=== PATIENT | male | born 1995 | race Caucasian/White ===

== ENCOUNTER 2017-05-28 15:36 | Emergency (ER) | payer OTHER ==
[~2017-05-28] VITALS: Ht 182.9 cm; Wt 147.4 kg
[2017-05-28] MEDS ORDERED: ACCUNEB SO1.25 MG/1 INH (16:49)
[2017-05-28] MEDS ORDERED: PREDNISONE 20 M20 MG PO (17:08)
[2017-05-28] MEDS ORDERED: ALBUTEROL2.5 MG/31 INH (17:08)
[2017-05-28] MEDS ORDERED: PROVENTIL HFA6.7 G1 INH (17:08)
[2017-05-28] MEDS ORDERED: ZPAK PO (17:08)
[2017-05-28 17:28] VITALS: BP 166/100
== END 2017-05-28 17:30 | disposition home or self-care (01) ==
LOC: ER 15:36
DX: J45.909 Unspecified asthma, uncomplicated (principal); Z87.01 Personal history of pneumonia (recurrent)